=== PATIENT | female | born 2000 | race Caucasian/White ===

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

== ENCOUNTER 2020-01-06 15:14 | Emergency (ER) | payer OTHER ==
[2020-01-06 15:32] VITALS: BP 125/85
--- NOTE | 2020-01-06 16:12 | UC ---
[facility] HPI - HPI Summary HPI Summary: 19-year-old female comes in with a chief complaint of right lower molar pain with associated soft tissue swelling. Patient reports that this tooth has been giving her a lot of problems for quite some time and then overnight she got lateral facial swelling. She's been using ibuprofen and acetaminophen for the pain. Ibuprofen helps more with the pain. Patient contacted her dentist and they would like to have her follow-up after the infection is gone. - History of Current Complaint Chief Complaint: UCDentalProblem Stated Complaint: DENTAL COMPLAINT Time Seen by Provider: 01/06/20 15:36 Hx Last Menstrual Period: 12/16/2019 Pain Intensity: 4 - Allergies/Home Medications Allergies/Adverse Reactions: Allergies Allergy/AdvReac Type Severity Reaction Status Date / Time No Known Allergies Allergy Verified 01/06/20 15:32 Home Medications: Home Medications Amoxicillin PO (*) [Amoxicillin 500 MG CAP*] 500 mg PO TID #30 cap 01/06/20 [Rx] HYDROcodone/ACETAMIN 5-325 MG* [[place] 5-325 TAB*] 1 tab PO Q6H PRN #15 tab MDD 4 01/06/20 [Rx] Ibuprofen TAB* [Motrin TAB* 800 MG] 1 tab PO ONCE 01/06/20 [History Confirmed ] PMH/Surg Hx/FS Hx/Imm Hx Previously Healthy: Yes - Surgical History Surgical History: None - Family History Known Family History: Positive: None - Social History Alcohol Use: None Substance Use Type: None Smoking Status (MU): Light Every Day Tobacco Smoker Type: Cigarettes Amount Used/How Often: 6 cig/day Have You Smoked in the Last Year: Yes - Immunization History Most Recent Influenza Vaccination: [id number] Season Vaccination Up to Date: Yes Review of Systems All Other Systems Reviewed And Are Negative: Yes Constitutional: Positive: Other - SEE HPI Skin: Positive: Negative Eyes: Positive: Negative ENT: Positive: Dental Pain Respiratory: Positive: Negative Cardiovascular: Positive: Negative Gastrointestinal: Positive: Negative Motor: Positive: Negative Neurovascular: Positive: Negative Musculoskeletal: Positive: Negative Neurological/Mental Status: Positive: Negative Psychological: Positive: Negative Is Patient Immunocompromised?: No Physical Exam Triage Information Reviewed: Yes Appearance: Well-Appearing, No Pain Distress, Well-Nourished Vital Signs: Initial Vital Signs Temp 98.9 F 01/06/20 15:29 Pulse 91 01/06/20 15:29 Resp 12 01/06/20 15:29 BP 125/85 01/06/20 15:29 Pulse Ox 100 01/06/20 15:29 Vital Signs Reviewed: Yes Eye Exam: Normal Eyes: Positive: Conjunctiva Clear ENT: Positive: Pharynx normal Dental: Positive: Other: - Right lower molar with caries and gingival swelling and associated right facial swelling. Neck: Positive: Supple Respiratory: Positive: No respiratory distress Musculoskeletal: Positive: Strength Intact, ROM Intact Neurological: Positive: Alert, Muscle Tone Normal Psychological: Positive: Age Appropriate Behavior Skin Exam: Normal Dental Complaint Course/Dx - Differential Dx/Diagnosis Provider Diagnosis: Dental abscess Discharge ED - Sign-Out/Discharge Documenting (check all that apply): Patient Departure All imaging exams completed and their final reports reviewed: No Studies - Discharge Plan Condition: Stable Disposition: HOME Prescriptions: Amoxicillin PO (*) [Amoxicillin 500 MG CAP*] 500 mg PO TID #30 cap HYDROcodone/ACETAMIN 5-325 MG* [[place] 5-325 TAB*] 1 tab PO Q6H PRN #15 tab MDD 4 PRN Reason: Pain - Moderate Patient Education Materials: Dental Abscess (ED) Forms: *Work Release Referrals: Gautam Fontana MD [Primary Care Provider] - Additional Instructions: FOLLOW UP WITH YOUR DENTIST. Do not take additional acetaminophen when you are taking the [place] as there is acetaminophen in the [place]. We need to take acetaminophen take it as directed to avoid acetaminophen overdose. GET REEVALUATED SOONER IF NOT IMPROVED OR WORSE OR ANY QUESTIONS OR CONCERNS. - Billing Disposition and Condition Condition: STABLE Disposition: Home
== END 2020-01-06 17:00 | disposition home or self-care (01) ==
LOC: UCEAST 15:14
DX: K04.7 Periapical abscess without sinus (principal); F17.210 Nicotine dependence, cigarettes, uncomplicated
CPT/HCPCS: 99212; G0463

== ENCOUNTER 2020-01-31 11:10 | Emergency (ER) | payer OTHER ==
[2020-01-31 11:38] VITALS: BP 136/68
--- NOTE | 2020-01-31 12:38 | UC ---
Dental HPI - HPI Summary HPI Summary: 19-year-old female presents with complaints of right lower dental pain. She was seen at this facility on 01/06/2020 for same complaints and diagnosed with a dental abscess and started on amoxicillin. [facility] she has only been taking the amoxicillin if she is having any dental pain therefore has been taking the antibiotic sporadically. Reports over the last 2-3 days she has noticed increased pain and swelling in the same area as previous. Pain radiates into her throat. [facility] was scheduled for a dentist appointment tomorrow however appointment was canceled due to the COVID-19 concerns. Denies fever, chills, facial swelling, drainage, dysphagia, or trismus. - History of Current Complaint Chief Complaint: UCDentalProblem Stated Complaint: SORE THROAT,DENTAL ABSCESS Time Seen by Provider: 01/31/20 11:50 Hx Obtained From: Patient Hx Last Menstrual Period: 1 month ago Pain Intensity: 3 Dental: 1 - Gingival erythema with minimal edema fluctuance. No induration or drainage noted. - Allergies/Home Medications Allergies/Adverse Reactions: Allergies Allergy/AdvReac Type Severity Reaction Status Date / Time No Known Allergies Allergy Verified 01/31/20 11:34 Home Medications: Home Medications Amoxicillin PO (*) [Amoxicillin 500 MG CAP*] 500 mg PO TID #30 cap 01/06/20 [Rx Confirmed 01/31/20] Ibuprofen TAB* [Motrin TAB* 800 MG] 1 tab PO ONCE 01/06/20 [History Confirmed ] Amoxicillin/Clavulanate TAB* [Augmentin TAB 875*] 875 mg PO BID #20 tab [Rx] PMH/Surg Hx/FS Hx/Imm Hx Previously Healthy: Yes - Denies significant PMH - Surgical History Surgical History: None - Family History Family History: Denies significant FMH - Social History Occupation: Employed Full-time Lives: With Family Alcohol Use: None Substance Use Type: None Smoking Status (MU): Light Every Day Tobacco Smoker Type: Cigarettes Amount Used/How Often: 6 cig/day Have You Smoked in the Last Year: Yes - Immunization History Most Recent Influenza Vaccination: 3228-6791 Season Vaccination Up to Date: Yes Review of Systems All Other Systems Reviewed And Are Negative: Yes Constitutional: Negative: Fever, Chills ENT: Positive: Dental Pain, Sore Throat. Negative: Ear Ache, Nasal Discharge, Sinus Congestion, Sinus Pain/Tenderness, Other - Facial swelling or trismus Respiratory: Negative: Shortness Of Breath, Cough Cardiovascular: Negative: Chest Pain Gastrointestinal: Positive: Negative Genitourinary: Positive: Negative Musculoskeletal: Positive: Negative Neurological/Mental Status: Positive: Negative Is Patient Immunocompromised?: No Physical Exam - Summary Physical Exam Summary: GENERAL APPEARANCE: Well developed, well nourished, alert and cooperative, and appears to be in no acute distress. HEAD: Atraumatic. normocephalic. No facial swelling noted. EYES: Conjunctiva clear. No drainage. EARS: External auditory canals and tympanic membranes clear, hearing grossly intact. NOSE: No nasal discharge. MOUTH/THROAT: Pharynx normal No tonsilar inflammation, swelling, exudate, or lesions. Uvula midline. Gingival erythema with minimal edema and fluctuance at the base of the right 3rd molar. No induration or drainage noted. No trismus. NECK: Neck supple, non-tender without lymphadenopathy. CARDIAC: Normal S1 and S2. No S3, S4 or murmurs. Rhythm is regular. There is no peripheral edema, cyanosis or pallor. Extremities are warm and well perfused. Capillary refill is less than 2 seconds. Peripheral pulses intact. LUNGS: Clear to auscultation without rales, rhonchi, wheezing or diminished breath sounds. ABDOMEN: Positive bowel sounds. Soft, nondistended, nontender. No guarding or rebound. No masses or hepatosplenomegally. MUSKULOSKELETAL: ROM intact to all extremities. No joint erythema or tenderness. Normal muscular development. Normal gait. SKIN: Skin normal color, texture and turgor with no lesions or eruptions. Triage Information Reviewed: Yes Vital Signs: Initial Vital Signs Temp 98 F 01/31/20 11:37 Pulse 84 01/31/20 11:37 Resp 14 01/31/20 11:37 BP 136/68 01/31/20 11:37 Pulse Ox 98 01/31/20 11:37 Vital Signs Reviewed: Yes Dental Complaint Course/Dx - Course Course Of Treatment: 19-year-old female presents with complaints of right lower dental pain. She was seen at this facility on 01/06/2020 for same complaints and diagnosed with a dental abscess and started on amoxicillin. States she has only been taking the amoxicillin if she is having any dental pain therefore has been taking the antibiotic sporadically. Reports over the last 2-3 days she has noticed increased pain and swelling in the same area as previous. Pain radiates into her throat. States was scheduled for a dentist appointment tomorrow however appointment was canceled due to the COVID-19 concerns. Denies fever, chills, facial swelling, drainage, dysphagia, or trismus. Afebrile. Vital signs stable. Patient had no facial swelling, normal pharynx without tonsillar swelling or exudate, gingival erythema with minimal edema and fluctuance at the base of the right 3rd molar, no induration or drainage noted, no trismus, no cervical lymphadenopathy, and otherwise unremarkable exam. Will switch patient to Augmentin 875 mg twice a day 10 days in order to cover for resistant organisms considering the patient has not been taking her amoxicillin as prescribed. Patient was counseled that it was important for her to take the antibiotics exactly as prescribed and for the full course. She is to use over- the-counter acetaminophen or ibuprofen as needed for pain. She is to follow-up with the dentist at the next available appointment. Anticipatory guidance and warning symptoms were reviewed with the patient. Verbalizes understanding and agrees with plan of care. - Differential Dx/Diagnosis Differential Diagnosis/Dx: Dental Abscess, Dental Caries, Fractured Tooth, Brina's Angina, Odontogenic Pain, Peridontic Disease Provider Diagnosis: Dental abscess Discharge ED - Sign-Out/Discharge Documenting (check all that apply): Patient Departure All imaging exams completed and their final reports reviewed: No Studies - Discharge Plan Condition: Stable Disposition: HOME Prescriptions: Amoxicillin/Clavulanate TAB* [Augmentin TAB 875*] 875 mg PO BID #20 tab Patient Education Materials: Dental Abscess (ED) Forms: *Work Release Referrals: Gautam Fontana MD [Primary Care Provider] - Additional Instructions: Start Augmentin 875 mg twice daily for 10 days. Take with food to avoid upset stomach. It is extremely important that she complete the entire course even if you are feeling better. Take acetaminophen (Tylenol) or ibuprofen (Advil, Motrin) according to directions as needed for pain. Be sure to rinse your mouth out with a warm salt water solution after every time you eat to remove any debris. Make an appointment with your dentist at next available appointment. Seek immediate medical attention in the emergency room if you develop fever greater than 100.5 F, you are unable to open of close your mouth, are unable to swallow, have difficulty breathing, or any worsening of symptoms. - Billing Disposition and Condition Condition: STABLE Disposition: Home
== END 2020-01-31 13:05 | disposition home or self-care (01) ==
LOC: UCEAST 11:10
DX: K04.7 Periapical abscess without sinus (principal); F17.210 Nicotine dependence, cigarettes, uncomplicated
CPT/HCPCS: 99212; G0463